=== PATIENT | female | born 1990 | race African-American/Black ===

== ENCOUNTER 2018-02-05 21:44 | Emergency (ER) | payer MEDICAID, OTHER ==
[~2018-02-05] VITALS: Ht 152.4 cm; Wt 110.0 kg
[~2018-02-05 21:44] MED LIST: ABILIFY; IRON; PRO-AIR; PROZAC
[2018-02-06 01:57] VITALS: BP 119/72
== END 2018-02-06 02:57 | disposition home or self-care (01) ==
LOC: ER 21:44
DX: O99.89 Other specified diseases and conditions complicating pregnancy, childbirth and the puerperium (principal); Z3A.10 10 weeks gestation of pregnancy; H61.22 Impacted cerumen, left ear; V89.2XXA Person injured in unspecified motor-vehicle accident, traffic, initial encounter; Y93.89 Activity, other specified; Y92.89 Other specified places as the place of occurrence of the external cause; Y99.8 Other external cause status; Z90.49 Acquired absence of other specified parts of digestive tract
CPT/HCPCS: 76801; 81025; 96523; 99284